=== PATIENT | female | born 1960 | race Caucasian/White ===

== ENCOUNTER 2017-08-17 15:40 | Emergency (ER) | payer BC, OTHER ==
[2017-08-17 16:42] VITALS: BP 113/78
[2017-08-17] MEDS ORDERED: Gelfoam 100 COMPRESSED* SPONGE TOPICAL ONE (16:50)
[2017-08-17] MEDS ORDERED: Gelfoam 12-7 ADSORBABL SPONGE* 1 EA SPONGE ONE (16:54)
--- NOTE | 2017-08-17 17:03 | UC ---
Laceration HPI - HPI Summary HPI Summary: Per orthopedic physical therapist "states at work today a student accidentally cut left pinky finger with scissors, tetanus up to date. School nurse cleaned and wrapped area. " Occurred ~ 1300. Not painful. able to move finger without difficulty. skin well opposed. - History Of Current Complaint Chief Complaint: UCSkin Stated Complaint: LACERATION ON (R) PINKY - W/C Time Seen by Provider: 08/17/17 16:46 Pain Intensity: 7 - Allergies/Home Medications Allergies/Adverse Reactions: Allergies Allergy/AdvReac Type Severity Reaction Status Date / Time No Known Allergies Allergy Verified 08/17/17 16:37 Home Medications: Home Medications Meclizine TAB* [Antivert 12.5 TAB*] 25 mg PO TID PRN 08/17/17 [History Confirmed 08/17/17] PMH/Surg Hx/FS Hx/Imm Hx Previously Healthy: Yes - Surgical History Surgical History: Yes Surgery Procedure, Year, and Place: tonsillectomy - Family History Known Family History: Positive: Hypertension - Social History Alcohol Use: None Substance Use Type: None Smoking Status (MU): Never Smoked Tobacco Review of Systems Constitutional: Negative Skin: Negative Eyes: Negative ENT: Negative Respiratory: Negative Cardiovascular: Negative Gastrointestinal: Negative Genitourinary: Negative Motor: Negative Neurovascular: Negative Musculoskeletal: Negative Neurological: Negative Psychological: Negative Is Patient Immunocompromised?: No All Other Systems Reviewed And Are Negative: Yes Physical Exam Triage Information Reviewed: Yes Appearance: Well-Appearing, No Pain Distress, Well-Nourished - very pleasant Vital Signs: Initial Vital Signs Temp 98.2 F 08/17/17 16:35 Pulse 72 08/17/17 16:35 Resp 17 08/17/17 16:35 BP 113/78 08/17/17 16:35 Pulse Ox 100 08/17/17 16:35 Vital Signs Reviewed: Yes Neck exam: Normal Respiratory: Positive: Lungs clear Cardiovascular: Positive: RRR, No Murmur Skin: Positive: Other - right lateral 5th digit w/ < 1 cm laceration abuting up to nail bed. skin well opposed. mild bleeding. CR brisk. FROM. non tender Laceration Course/Dx - Course/Dx Course Of Treatment: foam gel applied and secured with kerlix. tolerated well. - Differential Dx - Laceration/Wound Differental Diagnoses: Hematoma, Laceration Provider Diagnoses: rt 5th digit laceration Discharge - Sign-Out/Discharge Documenting (check all that apply): Discharge - Discharge Plan Condition: Stable Disposition: HOME Patient Education Materials: Laceration (ED) Referrals: Benita Wolfe [Primary Care Provider] - - Billing Disposition and Condition Condition: STABLE Disposition: HOME
== END 2017-08-17 17:18 | disposition home or self-care (01) ==
LOC: UCCORT 15:40
DX: S61.216A Laceration without foreign body of right little finger without damage to nail, initial encounter (principal); W27.2XXA Contact with scissors, initial encounter; Y93.89 Activity, other specified; Y92.219 Unspecified school as the place of occurrence of the external cause
CPT/HCPCS: 99212; A9270-GY; G0463

== ENCOUNTER 2017-12-01 07:52 | Emergency (ER) | payer BC, OTHER ==
[2017-12-01 08:01] VITALS: BP 109/79
--- NOTE | 2017-12-01 08:18 | UC ---
Ear Complaint HPI - HPI Summary HPI Summary: Patient has been swimming, has right ear pain and itching, now pain down below the ear as well. - History of Current Complaint Chief Complaint: UCEar Stated Complaint: RIGHT EAR Time Seen by Provider: 12/01/17 08:09 Hx Obtained From: Patient ?: No Onset/Duration: Sudden Onset, Lasting Days Severity Initially: Moderate Severity Currently: Severe Pain Intensity: 8 - Allergies/Home Medications Allergies/Adverse Reactions: Allergies Allergy/AdvReac Type Severity Reaction Status Date / Time No Known Allergies Allergy Verified 12/01/17 07:58 PMH/Surg Hx/FS Hx/Imm Hx Previously Healthy: Yes - Surgical History Surgical History: Yes Surgery Procedure, Year, and Place: tonsillectomy - Family History Known Family History: Positive: Hypertension - Social History Alcohol Use: None Substance Use Type: None Smoking Status (MU): Never Smoked Tobacco Review of Systems Constitutional: Negative Skin: Negative Eyes: Negative ENT: Ear Ache Respiratory: Negative Cardiovascular: Negative Gastrointestinal: Negative Genitourinary: Negative Motor: Negative Neurovascular: Negative Musculoskeletal: Negative Neurological: Negative Psychological: Negative Is Patient Immunocompromised?: No All Other Systems Reviewed And Are Negative: Yes Physical Exam Triage Information Reviewed: Yes Appearance: Well-Appearing, Well-Nourished, Pain Distress Vital Signs: Initial Vital Signs Temp 98.4 F 12/01/17 07:59 Pulse 60 12/01/17 07:59 Resp 16 12/01/17 07:59 BP 109/79 12/01/17 07:59 Pulse Ox 99 12/01/17 07:59 Vital Signs Reviewed: Yes Eye Exam: Normal Dental Exam: Normal Neck: Positive: Supple, Enlarged Nodes @ - behind right ear Respiratory Exam: Normal Respiratory: Positive: Chest non-tender, Lungs clear, Normal breath sounds Cardiovascular Exam: Normal Cardiovascular: Positive: RRR, No Murmur, Pulses Normal Abdominal Exam: Normal Abdomen Description: Positive: Nontender, No Organomegaly, Soft Bowel Sounds: Positive: Present Musculoskeletal Exam: Normal Musculoskeletal: Positive: Strength Intact, ROM Intact, No Edema Neurological Exam: Normal Neurological: Positive: Alert, Muscle Tone Normal Psychological Exam: Normal Skin Exam: Normal Ear Complaint Course/Dx - Course Course Of Treatment: hx obtained, exam performed, meds reviewed, treated for otitis externa - Differential Dx/Diagnosis Differential Diagnosis/HQI/PQRI: Otitis Externa Provider Diagnoses: right otitis externa Discharge - Sign-Out/Discharge Documenting (check all that apply): Discharge/Admit/Transfer - Discharge Plan Condition: Stable Disposition: HOME Prescriptions: Ciproflox/Dexameth OTIC.SUSP* [Ciprodex OTIC.SUSP*] 4 drop .SEE ORDER BID #1 btl predniSONE [Prednisone 20 MG TAB] 20 mg PO DAILY #7 tablet Patient Education Materials: Otitis Externa (ED) Referrals: Benita Wolfe [Primary Care Provider] - Additional Instructions: 1. Use the medication as prescribed 2. You may swim, but keep head above water for a few days. 3. Follow up if not improving. - Billing Disposition and Condition Condition: STABLE Disposition: Home
== END 2017-12-01 08:26 | disposition home or self-care (01) ==
LOC: UCCORT 07:52
DX: H60.91 Unspecified otitis externa, right ear (principal)
CPT/HCPCS: 99212; G0463

== ENCOUNTER 2018-08-02 09:07 | Emergency (ER) | payer BC, OTHER ==
[2018-08-02 09:27] VITALS: BP 124/66
[2018-08-02 10:02] LABS: Influenza A Molecular NEGATIVE (Negative); Influenza B Molecular NEGATIVE (Negative)
--- NOTE | 2018-08-02 10:12 | UC ---
Respiratory Complaint HPI - HPI Summary HPI Summary: 57 yo female with nasal congestion/post nasal drip and cough x 3 days fatigue sl CASTLE sl myalgias low grade temp chills no CP or SOB - History of Current Complaint Chief Complaint: UCRespiratory Stated Complaint: NAUSEA,CONGESTION,FEVER,ACHY Time Seen by Provider: 08/02/18 09:38 Hx Obtained From: Patient Onset/Duration: Gradual Onset, Lasting Days Timing: Constant Severity Initially: Mild Severity Currently: Moderate Pain Intensity: 5 Pain Scale Used: 0-10 Numeric Character: Cough: Nonproductive Aggravating Factors: Nothing Alleviating Factors: Nothing Associated Signs And Symptoms: Positive: Fever - lula, Chills, Nasal Congestion, Sinus Discomfort - Allergies/Home Medications Allergies/Adverse Reactions: Allergies Allergy/AdvReac Type Severity Reaction Status Date / Time No Known Allergies Allergy Verified 08/02/18 09:25 PMH/Surg Hx/FS Hx/Imm Hx Previously Healthy: Yes - Surgical History Surgical History: Yes Surgery Procedure, Year, and Place: tonsillectomy - Family History Known Family History: Positive: Hypertension Negative: Cardiac Disease, Diabetes - Social History Alcohol Use: None Substance Use Type: None Smoking Status (MU): Never Smoked Tobacco Review of Systems All Other Systems Reviewed And Are Negative: Yes Constitutional: Positive: Fever - lula, Chills, Fatigue Skin: Positive: Negative Eyes: Positive: Negative ENT: Positive: Nasal Discharge, Sinus Congestion, Sinus Pain/Tenderness Respiratory: Positive: Cough Cardiovascular: Positive: Negative Gastrointestinal: Positive: Negative Genitourinary: Positive: Negative Motor: Positive: Negative Neurovascular: Positive: Negative Musculoskeletal: Positive: Myalgia Neurological: Positive: Headache Psychological: Positive: Negative Physical Exam Triage Information Reviewed: Yes Appearance: Well-Appearing, No Pain Distress, Well-Nourished Vital Signs: Initial Vital Signs Temp 98.5 F 08/02/18 09:23 Pulse 74 08/02/18 09:23 Resp 18 08/02/18 09:23 BP 124/66 08/02/18 09:23 Pulse Ox 100 08/02/18 09:23 Vital Signs Reviewed: Yes Eyes: Positive: Conjunctiva Clear ENT: Positive: Hearing grossly normal, Nasal congestion, Nasal drainage, TMs normal, Uvula midline. Negative: Pharyngeal erythema, Tonsillar swelling, Tonsillar exudate, Trismus, Muffled voice, Hoarse voice, Dental tenderness, Sinus tenderness Neck: Positive: Supple, Nontender, No Lymphadenopathy Respiratory: Positive: Lungs clear, Normal breath sounds, No respiratory distress, No accessory muscle use Cardiovascular: Positive: RRR, No Murmur Musculoskeletal: Positive: ROM Intact Neurological Exam: Normal Neurological: Positive: Alert Psychological Exam: Normal Skin Exam: Normal Respiratory Course/Dx - Course Course Of Treatment: influenza (-) - Differential Dx/Diagnosis Provider Diagnosis: URI with cough and congestion Discharge - Sign-Out/Discharge Documenting (check all that apply): Patient Departure All imaging exams completed and their final reports reviewed: No Studies - Discharge Plan Condition: Stable Disposition: HOME Patient Education Materials: Upper Respiratory Infection (DC) Forms: *Work Release Referrals: Benita Wolfe [Primary Care Provider] - 3 Days (if not better) Additional Instructions: rest fluids tylenol your flu test was negative - Billing Disposition and Condition Condition: STABLE Disposition: Home
== END 2018-08-02 10:22 | disposition home or self-care (01) ==
LOC: UCCORT 09:07
DX: J06.9 Acute upper respiratory infection, unspecified (principal); R05 Cough; R09.81 Nasal congestion
CPT/HCPCS: 99211; G0463